=== PATIENT | female | born 1985 | race African-American/Black ===

== ENCOUNTER 2017-01-13 02:52 | Emergency (ER) | payer MEDICAID ==
[~2017-01-13] VITALS: Ht 170.2 cm; Wt 84.0 kg
[2017-01-13 03:00] VITALS: BP 110/58
== END 2017-01-13 05:20 | disposition left against medical advice (07) ==
LOC: ER 02:53
DX: Z53.21 Procedure and treatment not carried out due to patient leaving prior to being seen by health care provider (principal)